=== PATIENT | female | born 1955 | race Caucasian/White ===

== ENCOUNTER 2020-08-30 08:36 | Observation (INO) ==
[2020-08-30 09:26] LABS: Basophils % 0.4 % (0.0-0.8); Eosinophils # 0.1 10*3/uL (0.0-0.87); Eosinophils % 1.2 % (0.00-10.9); Hematocrit 40.4 VOL% (35.7-47.0); Hemoglobin 12.7 GM/DL (12.0-16.0); Immature Granulocytes % 0.7 %; Immature Granulocytes Absolute 0.08 #; Lymphocytes # 2.6 10*3/uL (1.4-4.0); Lymphocytes % 23.4 % (21.3-54.2); Mean Corpuscular HGB Conc 31.4 GM/DL (32-36); Mean Corpuscular Volume 91.8 FL (87-102); Mean Platelet Volume 9.2 FL (9.6-12.0); Monocytes % 5.7 % (1.7-12.7); Neutrophils % 68.6 % (38.7-73.9); Platelet Count 348 T/CUMM (130-400); Red Cell Distribution Width 15.9 % (9.3-17.3); White Blood Count 11.2 T/CUMM (4-12)
[2020-08-30 09:34] LABS: INR 0.9; PT Patient Result 10.5 SECS (10.5-12.0); Partial Thromboplastin Time 27.1 SECS (23.9-33.8)
[2020-08-30 09:45] LABS: Albumin 3.5 G/DL (3.4-5.0); Bilirubin,Total 0.4 MG/DL (0.2-1.0); Calcium 9.7 MG/DL (8.5-10.1); Osmolality,Calculated 281.1 MOS/KG (273-304); Potassium 4.6 MMOL/L (3.5-5.1); Thyroid Stimulating Hormone 1.26 uIU/ml (0.358-3.74)
[2020-08-30 09:50] LABS: Eosinophils 1 % (0-10); Lymphocytes 31 % (20-55); Platelet Estimate Adequate; Segmented Neutrophils 60 % (50-85); Total Cells Counted 100
[2020-08-30 10:28] LABS: Barbiturates Screen,Urine Negative (Negative); Benzodiazepines Screen,Urine Negative (Negative); Cannabinoid Screen,Urine Negative (Negative); Opiate Screen,Urine Negative (Negative); Phencyclidine Screen,Urine Negative (Negative)
[2020-08-30] MEDS ORDERED: diphenhydrAMINE CAP 25 MG CAPSULE PO PRN (10:49)
[2020-08-30] MEDS ORDERED: ALUMINUM/MAGNES/SIMETH MAX STR 30 ML UDCUP PO PRN (10:49)
[2020-08-30] MEDS ORDERED: MORPHINE 4 MG/1 ML VIAL IV PRN (10:49)
[2020-08-30] MEDS ORDERED: ZALEPLON 5 MG CAPSULE PO PRN (10:49)
[2020-08-30] MEDS ORDERED: PROMETHAZINE 25 MG TABLET PO PRN (10:49)
[2020-08-30] MEDS ORDERED: ACETAMINOPHEN 325 MG TABLET PO PRN (10:49)
[2020-08-30] MEDS ORDERED: hydrALAZINE 20 MG/1 ML VIAL IV PRN (10:49)
[2020-08-30] MEDS ORDERED: POTASSIUM CHLORIDE 20 MEQ TABLET PO PRN (10:49)
[2020-08-30] MEDS ORDERED: MAGNESIUM SULF RIDER 4 GM/100 ML PREMIX IV PRN (10:49)
[2020-08-30] MEDS ORDERED: DOCUSATE SODIUM 100 MG CAPSULE PO PRN (10:49)
[2020-08-30] MEDS ORDERED: guaiFENesin/DM ER 600-30 MG TABLET PO PRN (10:49)
[2020-08-30] MEDS ORDERED: ONDANSETRON 4 MG/2 ML VIAL IV PRN (10:49)
[2020-08-30] MEDS ORDERED: MAGNESIUM SULF RIDER 2 GM/50 ML PREMIX IV PRN ×2 (10:49→13:09)
[2020-08-30] MEDS ORDERED: CYCLOBENZAPRINE 10 MG TABLET PO PRN (10:51)
[2020-08-30] MEDS ORDERED: ENOXAPARIN 40 MG/0.4 ML SYRINGE SUBCUT SCH (11:00)
[2020-08-30 11:09] LABS: Risk Ratio 5.03; VLDL CHOLESTEROL 39.2 MG/DL
[2020-08-30] MEDS ORDERED: ASPIRIN 325 MG TABLET PO STA (13:00)
[2020-08-30] MEDS ORDERED: POTASSIUM CHLORIDE RIDER 10 MEQ/100 ML PREMIX IV PRN (13:09)
[2020-08-30] MEDS ORDERED: ENOXAPARIN 120 MG/0.8 ML SYRINGE SUBCUT ONE (13:33)
[2020-08-30] MEDS: ENOXAPARIN 120 MG/0.8 ML SYRINGE SUBCUT SCH (13:35)
[2020-08-30] MEDS: VERAPAMIL SR 120 MG TABLET PO SCH (16:30)
[2020-08-30] MEDS ORDERED: SELENIUM 200 MCG TABLET PO SCH (21:00)
[2020-08-30] MEDS ORDERED: PREGABALIN 75 MG CAPSULE PO SCH (21:00)
[2020-08-30] MEDS ORDERED: ROSUVASTATIN 10 MG TABLET PO SCH (21:00)
[2020-08-31] MEDS: ENOXAPARIN 120 MG/0.8 ML SYRINGE SUBCUT SCH (00:54)
[2020-08-31] MEDS ORDERED: SODIUM CHLORIDE 0.45% 1,000 ML IV SCH (06:00)
[2020-08-31] MEDS ORDERED: LIDOCAINE 1% 20 ML VIAL ONE (06:57)
[2020-08-31] MEDS ORDERED: HEPARIN/NACL 0.9% 2 UNITS/ML 2,000 UNIT/1,000 ML BAG IV ONE (06:57)
[2020-08-31 07:01] LABS: Basophils % 0.4 % (0.0-0.8); Eosinophils # 0.1 10*3/uL (0.0-0.87); Eosinophils % 1.4 % (0.00-10.9); Hematocrit 38.5 VOL% (35.7-47.0); Hemoglobin 12.3 GM/DL (12.0-16.0); Immature Granulocytes % 0.4 %; Immature Granulocytes Absolute 0.04 #; Lymphocytes # 3.1 10*3/uL (1.4-4.0); Lymphocytes % 29.6 % (21.3-54.2); Mean Corpuscular HGB Conc 31.9 GM/DL (32-36); Mean Corpuscular Volume 90.4 FL (87-102); Mean Platelet Volume 9.2 FL (9.6-12.0); Monocytes % 6.1 % (1.7-12.7); Neutrophils % 62.1 % (38.7-73.9); Platelet Count 331 T/CUMM (130-400); Red Blood Count 4.26 MC/CUMM (3.8-5.5); Red Cell Distribution Width 15.9 % (9.3-17.3); White Blood Count 10.3 T/CUMM (4-12)
[2020-08-31 07:22] LABS: Eosinophils 3 % (0-10); Hypochromasia 1+; Lymphocytes 34 % (20-55); Microcytosis 1+; Platelet Estimate Adequate; Segmented Neutrophils 59 % (50-85); Total Cells Counted 100
[2020-08-31 07:31] LABS: Calcium 9.6 MG/DL (8.5-10.1); Osmolality,Calculated 278.5 MOS/KG (273-304); Potassium 3.9 MMOL/L (3.5-5.1)
[2020-08-31] MEDS: ASPIRIN EC 81 MG TABLET PO SCH ×2 (07:36→10:15)
[2020-08-31] MEDS ORDERED: diphenhydrAMINE CAP 25 MG CAPSULE PO ONE (08:00)
[2020-08-31] MEDS ORDERED: DIAZEPAM 5 MG TABLET PO ONE (08:00)
[2020-08-31] MEDS ORDERED: HYDROmorphone 2 MG/1 ML VIAL ONE (08:32)
[2020-08-31] MEDS ORDERED: NITROGLYCERIN DRIP 50 MG/250 ML BOTTLE IV ONE (08:32)
[2020-08-31] MEDS ORDERED: MIDAZOLAM 2 MG/2 ML VIAL ONE (08:32)
[2020-08-31] MEDS ORDERED: VERAPAMIL 5 MG/2 ML VIAL ONE (08:32)
[2020-08-31] MEDS ORDERED: diphenhydrAMINE 50 MG/1 ML VIAL ONE (08:51)
[2020-08-31] MEDS ORDERED: ASCORBIC ACID 500 MG TABLET PO SCH (09:00)
[2020-08-31] MEDS ORDERED: MULTIVITAMIN (CENTRUM) TABLET PO SCH (09:00)
[2020-08-31] MEDS ORDERED: MELOXICAM 7.5 MG TABLET PO SCH (09:00)
[2020-08-31] MEDS ORDERED: MONTELUKAST 10 MG TABLET PO SCH (09:00)
[2020-08-31] MEDS ORDERED: PANTOPRAZOLE 40 MG TABLET PO SCH ×2 (09:00)
[2020-08-31] MEDS ORDERED: LEVOTHYROXINE 125 MCG TABLET PO SCH (09:00)
[2020-08-31] MEDS ORDERED: CETIRIZINE 10 MG TABLET PO SCH (09:00)
[2020-08-31] MEDS ORDERED: CHOLECALCIFEROL 1,000 UNIT TABLET PO SCH (09:00)
[2020-08-31] MEDS ORDERED: ENOXAPARIN 30 MG/0.3 ML SYRINGE ONE (09:01)
[2020-08-31] MEDS ORDERED: GLUCAGON 1 MG VIAL IM PRN (09:28)
[2020-08-31] MEDS ORDERED: DEXTROSE 50% 25 GM/50 ML VIAL IV PRN (09:28)
[2020-08-31] MEDS: VERAPAMIL SR 120 MG TABLET PO SCH (10:12)
[2020-08-31 15:08] VITALS: BP 119/51
[2020-09-01] MEDS ORDERED: LOSARTAN 25 MG TABLET PO SCH (09:00)
== END 2020-08-31 14:44 | disposition home or self-care (01) ==
LOC: EDUNIT# → EDBD → N.ED 08:36 → N.EDINP 08:36 → N.TELES 15:02
PROVIDERS: ADMIT Internal Medicine Cardiovascular Disease; ATTEND Internal Medicine Cardiovascular Disease
PROC: CLCCHCL (ICD-10-PCS; 2020-08-31 09:15)